=== PATIENT | male | born 1985 | race African-American/Black ===

== ENCOUNTER → 2018-08-04 | Emergency (ER) | payer OTHER ==
[~2018-08-04] MED LIST: HYOSCYAMINE SULFATE 0.125 MG *ODT PO ONE; LIDOCAINE VISCOUS 2% ORAL/TOP 20 ML UNIT-DOSE CUP MM ONE; LIDOCAINE VISCOUS 2% ORAL/TOP 20 ML UNIT-DOSE CUP ONE; MAG HYDROX/AL HYDROX/SIMETH 30 ML UNIT-DOSE CUP ONE; MAG HYDROX/AL HYDROX/SIMETH 30 ML UNIT-DOSE CUP PO ONE; PANTOPRAZOLE 40 MG TABLET (FP) ONE; PANTOPRAZOLE 40 MG TABLET (FP) PO ONE; SODIUM CHLORIDE 1,000 ML IV STA
--- NOTE | 2018-08-04 15:08 | PDOC ---
Rapid Medical Evaluation Time Seen by Provider: 08/04/18 15:00 Medical Evaluation: Allergies Allergy/AdvReac Type Severity Reaction Status Date / Time No Known Allergies Allergy Verified 08/04/18 15:05 08/04/18 15:07 The patient c/o: upper abd sharp cramping radiating to mid chest, feels anxious , hx GERD ( on no meds) Patient on brief exam: epigastric tenderness, no RUQ tenderness Patient ordered for: GI cocktail, ekg Patient to proceed to the ED 08/04/18 15:07 Discharge Disposition - Diagnosis Epigastric abdominal pain - Referrals - Patient Instructions - Post Discharge Activity
[2018-08-04 15:09] VITALS: BP 106/60; PULSE 52; TEMP 98.1; BMI 22.0
[2018-08-04 15:55] LABS: BASO % 0.8 % (0-2.0); EOS % 5.3 % (0-4.5); HEMATOCRIT 40.6 % (35.4-49); HEMOGLOBIN 13.4 GM/dL (11.7-16.9); LYMPH % 36.5 % (8-40); MCH 31.2 pg (25.7-33.7); MEAN CELL VOLUME 94.8 fl (80-96); MEAN PLT VOLUME 7.6 fl (7.5-11.1); MONO % 11.3 % (3.8-10.2); NEUT % 46.1 % (42.8-82.8); PLATELET COUNT 199 K/MM3 (134-434); RBC 4.28 M/mm3 (4.00-5.60); RDW 13.4 % (11.9-15.9); WHITE BLOOD COUNT 3.2 K/mm3 (4.0-10.0)
--- NOTE | 2018-08-04 16:27 | PDOC ---
History of Present Illness - General History Source: Patient Exam Limitations: No Limitations <Lavern Murphy - Last Filed: 08/05/18 11:04> <Puja Meredith - Last Filed: 08/05/18 12:24> - General Chief Complaint: Pain, Acute Stated Complaint: CHEST/STOMACH PAIN Time Seen by Provider: 08/04/18 15:00 Past History - Travel Traveled outside of the country in the last 30 days: No Close contact w/someone who was outside of country & ill: No - Past Medical History COPD: No Psychiatric Problems: Yes (anxiety depression) - Suicide/Smoking/Psychosocial Hx Smoking History: Never smoked Have you smoked in the past 12 months: No Information on smoking cessation initiated: No Hx Alcohol Use: No Drug/Substance Use Hx: No <Corinnejose [email or web address] [email or web address] - Last Filed: 08/05/18 11:04> <Puja Meredith - Last Filed: 08/05/18 12:24> - Past Medical History Allergies/Adverse Reactions: Allergies Allergy/AdvReac Type Severity Reaction Status Date / Time No Known Allergies Allergy Verified 08/04/18 15:05 Review of Systems - Review of Systems Able to Perform ROS?: Yes Comments:: 08/04/18 18:08 CONSTITUTIONAL: Absent: fever, chills, diaphoresis, generalized weakness, malaise, loss of appetite HEENT: Absent: rhinorrhea, nasal congestion, throat pain, throat swelling, difficulty swallowing, mouth swelling, ear pain, eye pain, visual Changes CARDIOVASCULAR: Absent: chest pain, loss of consciousness, palpitations, irregular heart rate, peripheral edema RESPIRATORY: Absent: cough, shortness of breath, dyspnea with exertion, orthopnea, wheezing, stridor, hemoptysis GASTROINTESTINAL: Present: abdominal pain Absent: abdominal pain, abdominal distension, nausea, vomiting, diarrhea, constipation, melena, hematochezia GENITOURINARY: Absent: dysuria, frequency, urgency, hesitancy, hematuria, flank pain, genital pain MUSCULOSKELETAL: Absent: myalgia, arthralgia, joint swelling SKIN: Absent: rash, itching, pallor HEMATOLOGIC/IMMUNOLOGIC: Absent: easy bleeding, easy bruising, lymphadenopathy, frequent infections ENDOCRINE: Absent: unexplained weight gain, unexplained weight loss, heat intolerance, cold intolerance NEUROLOGIC: Absent: headache, focal weakness or paresthesias, dizziness, unsteady gait, seizure, mental status changes, bladder or bowel incontinence PSYCHIATRIC: Absent: anxiety, depression, suicidal or homicidal ideation, hallucinations. Is the patient limited Surinamese proficient: No <Lavern Murphy - Last Filed: 08/05/18 11:04> *Physical Exam - Vital Signs Last Vital Signs Temp Pulse Resp BP Pulse Ox 98.1 F 52 L 18 106/60 98 08/04/18 15:06 08/04/18 15:06 08/04/18 15:06 08/04/18 15:06 08/04/18 15:06 - Physical Exam Comments: 08/04/18 18:09 GENERAL: Well developed, well nourished. Awake and alert. No acute distress. HEENT: Normocephalic, atraumatic. PERRLA, EOMI. No conjunctival pallor. Sclera are non- icteric. Moist mucous membranes. Oropharynx is clear. NECK: Supple. Full ROM. No JVD. Carotid pulses 2+ and symmetric, without bruits. No thyromegaly. No lymphadenopathy. CARDIOVASCULAR: Regular rate and rhythm. No murmurs, rubs, or gallops. Distal pulses are 2+ and symmetric. PULMONARY: No evidence of respiratory distress. Lungs clear to auscultation bilaterally. No wheezing, rales or rhonchi. ABDOMINAL: TTP of the epigastric region and LUQ. Soft. Non-distended. No rebound or guarding. No organomegaly. Normoactive bowel sounds. MUSCULOSKELETAL Normal range of motion at all joints. No bony deformities or tenderness. No CVA tenderness. EXTREMITIES: No cyanosis. No clubbing. No edema. No calf tenderness. SKIN: Warm and dry. Normal capillary refill. No rashes. No jaundice. NEUROLOGICAL: Alert, awake, appropriate. Cranial nerves 2-12 intact. No deficits to light touch and temperature in face, upper extremities and lower extremities. No motor deficits in the in face, upper extremities and lower extremities. Normoreflexic in the upper and lower extremities. Normal speech. Toes are down- going bilaterally. Gait is normal without ataxia. PSYCHIATRIC: Cooperative. Good eye contact. Appropriate mood and affect. <Lavern Murphy - Last Filed: 08/05/18 11:04> - Vital Signs Last Vital Signs Temp Pulse Resp BP Pulse Ox 98.1 F 52 L 18 106/60 98 08/04/18 15:06 08/04/18 15:06 08/04/18 15:06 08/04/18 15:06 08/04/18 15:06 <MeredithPuja Carlin - Last Filed: 08/05/18 12:24> ED Treatment Course - LABORATORY CBC & Chemistry Diagram: 08/04/18 15:50 08/04/18 15:50 - ADDITIONAL ORDERS Additional order review: 08/04/18 15:50 RBC 4.28 MCV 94.8 MCHC 33.0 RDW 13.4 MPV 7.6 Neutrophils % 46.1 Lymphocytes % 36.5 Monocytes % 11.3 H Eosinophils % 5.3 H Basophils % 0.8 - Medications Given in the ED: ED Medications Discontinued Medications Generic Name Dose Route Start Last Admin Trade Name Freq PRN Reason Stop Dose Admin Al Hydroxide/Mg Hydroxide 30 ml 08/04/18 15:06 08/04/18 15:52 Mylanta Oral Suspension - PO 08/04/18 15:07 30 ml ONCE ONE Administration Hyoscyamine Sulfate 0.125 mg 08/04/18 15:06 08/04/18 15:52 Levsin Odt - PO 08/04/18 15:07 0.125 mg ONCE ONE Administration Lidocaine HCl 20 ml 08/04/18 15:06 08/04/18 15:52 Xylocaine 2% Viscous Oral - MM 08/04/18 15:07 20 ml ONCE ONE Administration Pantoprazole Sodium 40 mg 08/04/18 15:07 08/04/18 15:52 Protonix - PO 08/04/18 15:08 40 mg ONCE ONE Administration <Lavern Murphy - Last Filed: 08/05/18 11:04> - LABORATORY CBC & Chemistry Diagram: 08/04/18 15:50 08/04/18 15:50 - ADDITIONAL ORDERS Additional order review: 08/04/18 15:50 RBC 4.28 MCV 94.8 MCHC 33.0 RDW 13.4 MPV 7.6 Neutrophils % 46.1 Lymphocytes % 36.5 Monocytes % 11.3 H Eosinophils % 5.3 H Basophils % 0.8 - Medications Given in the ED: ED Medications Discontinued Medications Generic Name Dose Route Start Last Admin Trade Name Freq PRN Reason Stop Dose Admin Al Hydroxide/Mg Hydroxide 30 ml 08/04/18 15:06 08/04/18 15:52 Mylanta Oral Suspension - PO 08/04/18 15:07 30 ml ONCE ONE Administration Hyoscyamine Sulfate 0.125 mg 08/04/18 15:06 08/04/18 15:52 Levsin Odt - PO 08/04/18 15:07 0.125 mg ONCE ONE Administration Sodium Chloride 1,000 mls @ 1,000 mls/hr 08/04/18 16:27 08/04/18 16:43 Normal Saline - IV 08/04/18 17:26 1,000 mls/hr ASDIR STA Administration Lidocaine HCl 20 ml 08/04/18 15:08/04/18 15:52 Xylocaine 2% Viscous Oral - MM 08/04/18 15:07 20 ml ONCE ONE Administration Pantoprazole Sodium 40 mg 08/04/18 15:07 08/04/18 15:52 Protonix - PO 08/04/18 15:08 40 mg ONCE ONE Administration <Puja Meredith - Last Filed: 08/05/18 12:24> Medical Decision Making - Medical Decision Making 08/04/18 19:11 the patient is a 33-year-old male with past medical history of reflux, anxiety, presents to the ER for epigastric pain starting since this morning. He states he took his regular home medication with little relief of his symptoms. He states that the pain does not radiate. He rates it a 10 out of 10. Denies fevers, chills, chest pain, difficulty breathing, shortness of breath, nausea, vomiting, diarrhea and constipation. Patient states he has never been to a GI doctor regarding his reflux. A/P: Epigastric pain On exam tenderness to palpation of the epigastric and left upper quadrant region. EKG: Basic labs were ordered including a lipase. No leukocytosis, cardiac labs negative, lipase negative Patient with relief after GI cocktail which was ordered from [facility]. We will discharge home with GI follow-up for rule out ulcer. I discussed the physical exam findings, ancillary test results and final diagnoses with the patient. I answered all of the patient's questions. The patient was satisfied with the care received and felt comfortable with the discharge plan and treatment plan. The Patient agrees to follow up with the primary care physician/specialist within 24-72 hours. Return precautions were given. <Lavern Murphy - Last Filed: 08/05/18 11:04> - Medical Decision Making The patient was seen and evaluated in conjunction with midlevel provider under my direct supervision, ancillary studies were reviewed. I agree with the plan as outlined SAMANTHA Murphy. HPI, workup/dispo as outlined. VS reviewed, wnl. labs unremarkable. GI and PMD follow up provided. 08/05/18 12:24 <Puja Meredith - Last Filed: 08/05/18 12:24> *DC/Admit/Observation/Transfer - Discharge Dispostion Decision to Admit order: No <Lavern Murphy - Last Filed: 08/05/18 11:04> <Puja Meredith - Last Filed: 08/05/18 12:24> Diagnosis at time of Disposition: Epigastric abdominal pain - Discharge Dispostion Disposition: HOME Condition at time of disposition: Stable - Referrals Referrals: Nikhil Ascencio MD [Staff Physician] - - Patient Instructions Printed Discharge Instructions: DI for Gastroesophageal Reflux Disease (GERD) Additional Instructions: You were evaluated for your abdominal pain today Your lab work and EKG were normal Please continue your home medications for your reflux as previously prescribed Since your symptoms are not improving despite treatment, please follow up with gastroenterology (stomach doctor) tomorrow Return to the ER for any new or worsening symptoms - Post Discharge Activity Forms/Work/School Notes: Back to Work
[2018-08-04 16:36] LABS: ALBUMIN 4.1 g/dl (3.4-5.0); ALK PHOS 61 U/L (45-117); ANION GAP 5 MMOL/L (8-16); BILIRUBIN,TOTAL 0.3 mg/dL (0.2-1); BLOOD UREA NITROGEN 15 mg/dL (7-18); CALCIUM 9.1 mg/dL (8.5-10.1); CHLORIDE 108 mmol/L (98-107); CO2 27 mmol/L (21-32); CREATININE 0.9 mg/dL (0.55-1.3); GLUCOSE,RANDOM 95 mg/dL (74-106); POTASSIUM 4.1 mmol/L (3.5-5.1); SGOT/AST 35 U/L (15-37); SGPT/ALT 23 U/L (13-61); SODIUM 140 mmol/L (136-145); TOT PROT 7.1 g/dl (6.4-8.2)
[2018-08-04 19:53] LABS: LIPASE 163 U/L (73-393)
--- NOTE | 2018-08-05 10:08 | EKG ---
Test Reason : Blood Pressure : / mmHG Vent. Rate : 053 BPM Atrial Rate : 053 BPM P-R Int : 126 ms QRS Dur : 090 ms QT Int : 480 ms P-R-T Axes : 082 084 071 degrees QTc Int : [address] ELEVATION, CONSIDER EARLY REPOLARIZATION, PERICARDITIS, OR INJURY Confirmed by LUIS MILES MD ([id number]) on 08/05/2018 10:08:18 AM Referred By: Confirmed By:LUIS MILES MD
== END | disposition home or self-care (01) ==
LOC: JER 14:46
PROC: 3E0337Z Introduction of Electrolytic and Water Balance Substance into Peripheral Vein, Percutaneous Approach (ICD-10-PCS; principal; 2018-08-04)
DX: K21.9 Gastro-esophageal reflux disease without esophagitis (principal); F41.9 Anxiety disorder, unspecified; F32.9 Major depressive disorder, single episode, unspecified
CPT/HCPCS: 36415; 80053; 82550; 82553; 83690; 84484; 85025; 93005; 93010; 96360; 99283-25; J7030